=== PATIENT | female | born 1960 | race Caucasian/White ===

== ENCOUNTER → 2019-11-16 10:56 | Outpatient (CLI) | payer OTHER, SELFPAY ==
--- NOTE | ~2019-11-16 | XR_ITS ---
EXAMINATION: XR lumbar spine 2-3V DATE: 11/16/2019 11:56 INDICATION: Lumbar spinal stenosis. TECHNIQUE: 3 views of lumbar spine including flexion and extension views were obtained. COMPARISON: Lumbar spine MRI 09/26/2019 FINDINGS: There is 4 mm anterolisthesis of L4 on L5. With flexion, there is 3 mm anterolisthesis of L 3 on L4. Vertebral body heights are normal. Intervertebral disc heights are normal. There is multilev el facet joint osteoarthritis, severe bilaterally from L2-L3 through L4-L5. IMPRESSION: 1. Moderate lumbar spondylosis. Reviewed, dictated and finalized at location A. RD CHANGER
== END ==
PROVIDERS: PCP Family Medicine
DX: M48.061 Spinal stenosis, lumbar region without neurogenic claudication (principal); M47.896 Other spondylosis, lumbar region
CPT/HCPCS: 72100

== ENCOUNTER 2019-11-16 12:13 | Outpatient (CLI) | payer OTHER, SELFPAY ==
--- NOTE | 2019-11-16 | ECG_ITS ---
Measurements Intervals [place] Rate: 73 P: 6 MA: 162 QRS: 24 QRSD: 84 T: 29 QT: 385 QTc: 425 Interpretive Statements SINUS RHYTHM NORMAL ECG Electronically Signed On 11-16-2019 17:46:27 CAMPAIGN MANAGEMENT SPECIALIST by Aaron Parra D.O.
== END 2019-11-16 12:14 | disposition home or self-care (01) ==
LOC: ANHCARD 12:18
PROVIDERS: PCP Family Medicine
DX: M48.061 Spinal stenosis, lumbar region without neurogenic claudication (principal)
CPT/HCPCS: 93005

== ENCOUNTER 2020-02-19 17:33 | Outpatient (CLI) | payer OTHER, SELFPAY ==
--- NOTE | ~2020-02-19 | MR_ITS ---
EXAMINATION: MR lumbar spine wo/w con EXAM DATE: 02/19/2020 18:51 INDICATION: Low back surgery in December 2019. Right-sided lumbar pain. Low back pain. Right thigh pain. TECHNIQUE: Multi-sequential, multiplanar MR images of the lumbar spine were obtained without contrast . Sagittal T1, T2, T2 fat saturation images. Axial T2 weighted images. Axial T1 weighted sequence. Patient was then injected with 17 mL Multihance intravenous contrast and reimaged. Postcontrast axi al and sagittal T1-weighted fat saturation sequences were obtained. Comparison is made to prior exam ination from 09/26/2019. FINDINGS: Interval left hemilaminotomy at L3 and L4 levels. Enhancement at the resection beds of thes e. Some inflammation, enhancement of the medial aspect left posterior paraspinal musculature. No epid ural abscess or evidence of arachnoiditis. The conus medullaris terminates at the L1/2 level and has normal signal intensity and morphology. Th ere is 3 mm anterolisthesis L4 on L5. The vertebral bodies are otherwise aligned. There is mild lumba r disc disease but the heights are maintained. There are no suspicious marrow signal abnormalities. P araspinal soft tissue is unremarkable. Level by level evaluation: T12-L1: Disc does not extend beyond the endplate margin. Facet arthropathy: Mild. Neural foraminal stenosis: No stenosis. Central canal stenosis: No stenosis. L1-L2: There is a minimal diffuse disc bulge. Facet arthropathy: Mild. Neural foraminal stenosis: No stenosis. Central canal stenosis: No stenosis. L2-L3: There is a mild diffuse disc bulge. Facet arthropathy: Moderate. Neural foraminal stenosis: No stenosis. Central canal stenosis: Mild. L3-L4: There is a mild to moderate diffuse disc bulge. Facet arthropathy: Moderate to severe. Neural foraminal stenosis: Moderate left, mild to moderate right. Central canal stenosis: Mild. L4-L5: There is a mild to moderate diffuse disc bulge. Facet arthropathy: Severe. Neural foraminal stenosis: Moderate to severe left, mild to moderate right. Central canal stenosis: Moderate. L5-S1: There is a mild diffuse disc bulge. Facet arthropathy: Mild. Neural foraminal stenosis: No stenosis. Central canal stenosis: No stenosis. IMPRESSION: 1. Laminotomy bed L3 and L4 with expected postoperative enhancement. 2. Advanced mid lumbar facet arthropathy. Reviewed, dictated and finalized at location A.
[2020-02-19 18:40] LABS: Estimated Glomerular Filt Rate > 60
== END 2020-02-19 17:34 | disposition home or self-care (01) ==
PROVIDERS: PCP Family Medicine
DX: M43.16 Spondylolisthesis, lumbar region (principal); Z98.890 Other specified postprocedural states
CPT/HCPCS: 36415; 72158; A9577

== ENCOUNTER 2022-08-03 10:27 | Outpatient (CLI) | payer OTHER, SELFPAY ==
[2022-08-03 19:29] LABS: Kit Draw Collected
== END 2022-08-03 10:28 | disposition home or self-care (01) ==
LOC: ANHGOSHLAB 10:29
PROVIDERS: PCP Family Medicine; Visit Provider Family Medicine
DX: E04.9 Nontoxic goiter, unspecified (principal); R73.03 Prediabetes; Z11.59 Encounter for screening for other viral diseases
CPT/HCPCS: 36415

== ENCOUNTER → 2023-04-26 11:03 | Outpatient (CLI) | payer OTHER, SELFPAY ==
--- NOTE | ~2023-04-26 | DEXA_ITS ---
Bone Density Report Name: SANDRA DESHPANDE Age: 63 Sex: Female Ethnicity: White Date of : 1960 Indication: postmenopausal; screening for osteoporosis; Referring Provider: SHAYNE GUTIERREZ Study: Bone densitometry was performed. Exam Date: April 26, 2023 Accession number: [id number] Bone Density: Region BMD T-score Z-score Classification AP Spine (L1-L4) 1.124 0.7 2.4 Normal Femoral Neck (Left) 0.796 -0.5 1.0 Normal Total Hip (Left) 0.936 0.0 1.1 Normal Femoral Neck (Right) 0.785 -0.6 0.9 Normal Total Hip (Right) 0.975 0.3 1.4 Normal Total Hip Mean 0.956 0.2 1.3 Normal World Health Organization criteria for BMD impression classify patients as: Normal (T-score at or above -1.0), Osteopenia (T-score between -1.0 and -2.5), or Osteoporosis (T-score at or below -2.5). 10-year Fracture Risk: FRAX not reported because: All T-scores for Spine Total, Hip Total, Femoral Neck at or above -1.0 Clinical Information Provided by Patient: Patient maximum height was 66.5 Menopause Age: 49 No regular weight bearing exercise Drinks caffeinated beverages Onset of menses at age 13 Number of children 3 Impression: The patient has normal bone mass. Discussion: BONE DENSITY IS ABOVE THE MINIMUM DESIRABLE LEVEL AT ALL SKELETAL SITES TESTED. This patient?s bone mineral density is above the minimum desirable level (T-score -1.0 or better) at all sites measured. The patient should follow a healthful lifestyle (good nutrition with adequate calcium and vitamin D, and appropriate weight-bearing exercise). Follow-Up: Consider repeating this study in 5 years or sooner if there is some new clinical indication. Reported by: [facility] on 04/26/2023 11:25:00 AM. Reviewed, dictated and finalized at location A. [facility]
--- NOTE | ~2023-04-26 | MM_ITS ---
EXAMINATION: MM screening [facility] BI w donna HISTORY: Screening mammogram TECHNIQUE: Craniocaudal and mediolateral oblique 3-D tomosynthesis images were obtained and synthetic 2-D images were generated. CAD analysis was submitted and interpreted. COMPARISON: 02/05/2016, 01/12/2015, 12/06/2013 BREAST PARENCHYMAL COMPOSITION: The breasts are heterogeneously dense, which may obscure small masses . FINDINGS: No suspicious mass, calcification, or architectural distortion are identified in either [place] ast to suggest malignancy. There has been no suspicious interval change. IMPRESSION: 1. No mammographic evidence of malignancy. 2. Recommend routine screening mammography in one year. BI-RADS Category 1: Negative Reviewed, dictated and finalized at location A.
== END ==
PROVIDERS: PCP Family Medicine; Visit Provider Family Medicine
DX: Z12.31 Encounter for screening mammogram for malignant neoplasm of breast (principal); Z78.0 Asymptomatic menopausal state
CPT/HCPCS: 77063; 77067; 77080

== ENCOUNTER 2023-08-11 09:16 | Outpatient (CLI) | payer OTHER, SELFPAY ==
[2023-08-11 18:21] LABS: Alanine Aminotransferase 18 U/L (6-35); Albumin Level 4.2 g/dL (3.5-5.1); Alkaline Phosphatase 96 U/L (38-126); Anion Gap 8 mmol/L (8-16); Aspartate Amino Transferase 30 U/L (14-36); Bilirubin,Total 0.5 mg/dL (0.2-1.3); Blood Urea Nitrogen 15 mg/dL (7-17); Calcium 9.4 mg/dL (8.4-10.2); Carbon Dioxide 28 mmol/L (22-30); Chloride 105 mmol/L (98-107); Cholesterol 237 mg/dL (0-200); Estimated Glomerular Filt Rate > 60; Glucose 103 mg/dL (65-110); HDL Direct 37 mg/dL; Sodium 141 mmol/L (137-145); Triglycerides 242 mg/dL (<150)
[2023-08-11 18:32] LABS: LDL Cholesterol Direct 113 mg/dL
[2023-08-11 18:54] LABS: Hemoglobin A1C 5.3 % (<5.7)
== END 2023-08-11 09:17 | disposition home or self-care (01) ==
LOC: ANHGOSHLAB 09:18
PROVIDERS: PCP Family Medicine; Visit Provider Family Medicine
DX: E04.9 Nontoxic goiter, unspecified (principal); E78.2 Mixed hyperlipidemia
CPT/HCPCS: 36415; 80053; 80061; 83036; 84443

== ENCOUNTER 2024-01-10 14:02 | Outpatient (CLI) | payer OTHER, SELFPAY ==
--- NOTE | ~2024-01-10 | MR_ITS ---
EXAMINATION: MR lumbar spine wo con DATE: 01/10/2024 14:31 INDICATION: Spinal stenosis, lumbar region with neurogenic claudication. TECHNIQUE: Magnetic resonance imaging (MRI) of the lumbar spine was performed without intravenous con trast. Sequences included sagittal T2-weighted FSE, sagittal T2-weighted FS FSE, sagittal T1-weighted FSE, and axial T2-weighted FSE. COMPARISON: Lumbar spine MRI 02/19/2020 FINDINGS: There is 10 degrees dextroscoliosis of lumbar spine. There is 6 mm anterolisthesis of L4 on L5. Vertebral body heights are normal. There is severely decreased disc height at L2-L3, mildly decr eased disc height at L3-L4, and severely decreased disc height at L4-L5. The distal spinal cord signa l intensity is normal. The conus medullaris is at L1. The following disc levels are specifically disc ussed: L1-L2: There is a right foraminal extrusion. There is mild bilateral facet joint osteoarthritis. Ther e is mild right neural foraminal stenosis. There is no central canal stenosis. L2-L3: The disc is bulging and has an annular fissure. There is severe bilateral facet joint osteoart hritis. There is mild bilateral neural foraminal stenosis. There is mild central canal stenosis. L3-L4: The disc is bulging and has an annular fissure. There is severe bilateral facet joint osteoart hritis. There is mild bilateral neural foraminal stenosis. There is mild central canal stenosis. L4-L5: The disc is bulging and has an annular fissure. There is severe bilateral facet joint osteoart hritis. There is moderate bilateral neural foraminal stenosis. There is moderate central canal stenos is. L5-S1: The disc does not extend beyond the endplate margin. There is severe bilateral facet joint ost eoarthritis. There is no neural foraminal stenosis. There is no central canal stenosis. IMPRESSION: 1. Worsened severe lumbar spondylosis. 2. Lumbar dextroscoliosis. Reviewed, dictated and finalized at location E.
== END 2024-01-10 14:03 ==
LOC: MICIMG 14:04
PROVIDERS: PCP Chiropractor; Referring Provider Neurological Surgery; Visit Provider Family Medicine
DX: M48.062 Spinal stenosis, lumbar region with neurogenic claudication (principal); M47.896 Other spondylosis, lumbar region
CPT/HCPCS: 72148

== ENCOUNTER 2024-07-11 12:29 | Outpatient (CLI) | payer MEDICARE, OTHER, SELFPAY ==
--- NOTE | 2024-07-11 12:32 | ECG_ITS ---
Test Date: 2024-07-11 12:54:17 Measurements Intervals [place] Rate: 61 P: 5 NJ: 178 QRS: 5 QRSD: 84 T: 7 QT: 355 QTc: 358 Interpretive Statements SINUS RHYTHM WITH MARKED RHYTHM IRREGULARITY, POSSIBLE NON-CONDUCTED PAC, SA BLOCK, AV BLOCK, OR SINUS PAUSE LOW QRS VOLTAGE IN PRECORDIAL LEADS [QRS DEFLECTION < 1.0 mV IN CHEST LEADS] WARNING: DATA QUALITY MAY AFFECT INTERPRETATION No previous ECG available for comparison Electronically Signed On 07-11-2024 15:30:48 CDT by Maria Del Carmen Fairchild M.D.
[2024-07-11 13:24] LABS: Hematocrit 39.4 % (37.0-47.0); Mean Corpuscular Hemoglobin 30.4 pg (26-34); Mean Corpuscular Volume 92.1 fl (80-100); Mean Platelet Volume 10.6 fl (7.4-10.4); Platelet Count Result 224 k/mm3 (150-375); Red Blood Count 4.28 M/mm3 (4.2-5.4); Red Cell Distribution Width 11.8 % (11.5-14.5); White Blood Count 7.2 K/mm3 (4.5-10.0)
[2024-07-11 13:26] LABS: Add Urine Microscopic? NO; Appearance Urine Clear (Clear); Bilirubin Urine Negative (Negative); Blood Urine Negative (Negative); Color Urine Yellow (Yellow); Glucose Urine UA Negative (Negative); Ketones Urine Negative (Negative); Leukocyte Esterase Ur Negative LEU/UL (Negative); Nitrate Urine Negative (Negative); Protein Urine Negative (Negative); Specific Grav Ur 1.005 (1.001-1.035); Urobilinogen Urine 0.2 mg/dL (<2.0); pH Urine 7.5 (5.0-9.0)
[2024-07-11 13:34] LABS: Anion Gap 10 mmol/L (4-12); Blood Urea Nitrogen 13 mg/dL (7-17); Calcium 9.1 mg/dL (8.4-10.2); Carbon Dioxide 29 mmol/L (22-30); Chloride 96 mmol/L (98-107); Estimated Glomerular Filt Rate > 60; Glucose 93 mg/dL (65-110); Potassium 3.5 mmol/L (3.4-5.0); Sodium 135 mmol/L (137-145)
[2024-07-11 14:24] LABS: INR 0.9; Prothrombin Time 12.7 Seconds (11.1-14.7)
== END 2024-07-11 12:30 | disposition home or self-care (01) ==
PROVIDERS: PCP Family Medicine; Visit Provider Neurological Surgery
DX: Z01.818 Encounter for other preprocedural examination (principal); M43.16 Spondylolisthesis, lumbar region; I49.9 Cardiac arrhythmia, unspecified; I10 Essential (primary) hypertension; R94.31 Abnormal electrocardiogram [ECG] [EKG]
CPT/HCPCS: 36415; 80048; 81003; 85027; 85610; 85730; 86850; 86900; 86901; 93005

== ENCOUNTER 2024-07-16 13:43 | Inpatient (IN) | payer MEDICARE, OTHER, SELFPAY ==
--- NOTE | 2024-07-05 12:37 | PC.NURSE ---
Report to the Outpatient Waiting Room, entrance under the green pavilion located off [facility], at time _6AM on date _07/16/24 . Planned Procedure Time: _7:30 AM .? Time changes happen often and if your time is changed the preop area will call you the afternoon before. - You and your visitor will be asked to self-screen and do not enter if you have any COVID symptoms. Please call surgeon if you need to reschedule. - A mask is optional within the hospital at this time. Patients may have clear liquids (water, carbonated beverages, clear teas, apple juice) until 3 hours prior to surgery( 4:30 AM) with a maximum of 20 ounces. - No food from midnight until time of surgery and no smoking - Infants may have breast milk until 4 hours before surgery, infant formula 6 hours prior to surgery. - Children will be allowed to drink immediately following surgery.? If applicable, please bring a bottle or sippy cup to assist with drinking. Juice, water, soda, and popsicles are readily available.? For infants on formula, please bring formula the day of surgery.? Pacifiers are allowed. Take only the following medications with a SIP of water on the morning of surgery: ___NONE DO NOT STOP ANY OF YOUR OTHER PRESCRIPTION MEDICATIONS PRIOR TO SURGERY EXCEPT THE FOLLOWING Medications to discontinue per physician _ASPIRIN AND MELOXICAM PER DR ESCALONA. HOLD ALL VITAMINS AND SUPPLEMENTS 3 DAYS PRE O P.LAST DOSE 07/12/24 Please no make-up, nail danish, hairspray, perfume, deodorant, or body powder the day of surgery.? No jewelry (including any body piercings) or valuables the day of surgery, leave them at home.? Please take a shower or bath the night before, or the morning of, surgery with an antibacterial soap.? Wear comfortable, loose fitting clothing.? Children are encouraged to wear pajamas. - Jewelry must be removed prior to entering the operating room.? Rings and piercings that are not removed may be cut off. - The hospital will not accept responsibility for valuables.? - Please leave all valuables, including medications, at home the day of surgery. If you are going home after surgery, a licensed special client bus driver must drive you home.? - NO public transportation without another adult if you receive anesthesia. - We recommend that an adult stay with you for 24 hours following discharge. - We also recommend that you do not drive, make important decision, drink alcoholic beverages, or take any drugs that were not prescribed by your health care provider for at least 24 hours after your discharge time. For Pediatric surgeries, we recommend two adults accompany the child home. Follow any additional instructions given to you from your surgeon. Telephone instructions given to _PATIENT and asked if any additional questions and then verbalized understanding. Patient advised to call surgeon office or pre surgery nurse liaison [phone] if any additional questions.6
[2024-07-05 12:48] VITALS: BMI 32.9
[2024-07-16] VITALS (20 sets, daily range): BP systolic 123–157; BP diastolic 68–99; PULSE 86–107; RESP 11–18; TEMP 36.2–37.4; O2SAT 92–100
--- NOTE | ~2024-07-16 | XR_ITS ---
EXAMINATION: XR fluoroscopy no charge DATE: 07/16/2024 10:39 INDICATION: Lumbar spondylosis. TECHNIQUE: 2 intraoperative fluoroscopic views of the lumbar spine were obtained. I was not present. Fluoroscopy time was 9 seconds. COMPARISON: Lumbar spine MRI 01/10/2024 FINDINGS: There is 4 mm anterolisthesis of L4 on L5. There are changes of anterior and posterior fusi on procedures at L4-L5 with interbody devices and pedicle screws. IMPRESSION: 1. Anterior and posterior fusion procedures at L4-L5. Reviewed, dictated and finalized at location B.
[2024-07-16] MEDS: LACTATED RINGERS 1,000 ML 30 ML IV CONT ×2 (06:55→11:24)
--- NOTE | 2024-07-16 07:24 | WPDANESEPPF ---
Anes - Initial Pre Proc Eval Procedure: Operation Date: 07/16/24 07:30 Proposed Procedures p L4-5 Posterior Lumbar Interbody Fusion, L2-3 Left Nicolas Laminectomy - Mason Tucker MD Date/Time: 07/16/24 07:24 Surgeon: Mason Tucker MD Pre Op Diagnosis: L4-5 spondylolithisis, L2-3 stenosis Patient Data Age: 64 Gender: F Height: 1.7 m Weight: 94.8 kg Last Vital Signs Temp 36.8 C 07/16/24 06:25 Pulse 91 07/16/24 06:25 Resp 16 07/16/24 06:25 BP 148/83 H 07/16/24 06:25 Pulse Ox 98 07/16/24 06:25 O2 Del Method Room Air 07/16/24 06:25 Allergies Allergy/AdvReac Type Severity Reaction Status Date / Time levothyroxine sodium Allergy Unknown hot Verified 07/16/24 07:02 flashes, depression tetracycline Allergy Unknown facial Verified 07/16/24 07:02 swelling hydromorphone [From Dilaudid] Allergy Vomiting Verified 07/16/24 07:02 duloxetine AdvReac Severe flatness, Verified 07/16/24 07:02 apathy lisinopril AdvReac Severe Cough Verified 07/16/24 07:02 Home Medications Medication Instructions Recorded Confirmed Type atorvastatin 20 mg tablet 20 mg PO DAILY #90 tabs 11/07/23 07/16/24 Rx meloxicam 15 mg tablet See Rx Instructions .Route 11/07/23 07/16/24 Rx .COMPLEX #90 tabs hydrochlorothiazide 25 mg tablet 25 mg PO DAILY #90 tabs 12/12/23 07/16/24 Rx losartan 50 mg tablet 50 mg PO DAILY #90 tabs 12/12/23 07/16/24 Rx aspirin 81 mg tablet,delayed 81 mg PO DAILY 07/05/24 07/16/24 History release (Adult Low Dose Aspirin) coQ10 (ubiquinol) 100 mg capsule 100 mg PO DAILY 07/05/24 07/16/24 History garlic 300 mg capsule 300 mg PO DAILY 07/05/24 07/16/24 History glucosamine sulf dipot 1 cap PO DAILY 07/05/24 07/16/24 History chlr,msm,chond 550 mg-C 30 mg-yeimi 1 mg capsule (Glucosamine Chondroitin) magnesium 200 mg tablet 200 mg PO DAILY 07/05/24 07/16/24 History multivitamin (Daily Multi-Vitamin 1 tablet PO DAILY 07/05/24 07/16/24 History tablet) omega-3 fatty acids 1,000 mg PO DAILY 07/05/24 07/16/24 History turmeric 400 mg capsule 400 mg PO DAILY 07/05/24 07/16/24 History Patient hx anesthesia problems: none Family hx anesthesia problems: none Prior surgeries: tonsillectomy, cholecystectomy, prior spinal surgery Results Review: All pre-operative results and documents have been reviewed as part of the pre-operative evaluation. [facility] Past Medical History Medical History Normal colonoscopy 5.2.14 Surgical History Surgical History H/O tubal ligation (~1999) History of cholecystectomy (~2017) History of tonsillectomy (~1982) Previous back surgery Family History Family History Mother Hypertension Family history of heart disease in male family member before age 55 Family history of cardiovascular disease Grandparent Family history of malignant melanoma Family history of malignant neoplasm of cervix Sibling Family history of elevated blood lipids Other Family history of malignant neoplasm Social History Social History Smoking packs per day: 1 Smoking cigarettes per day: 20.0 Years smoked: 10 Smoking pack-years: 10.00 Smoking status: Former smoker Tobacco type: cigarettes Smoking end date: 09/18/91 Alcohol intake: never Substance use: never Substance use type: does not use Lack of Transportation: No Lack of Food: Never True Current Housing: I Have Housing Concerned About Future Housing: No Difficulty Paying Gas/Electric Bills: No Difficulty Paying for Meds: No Currently Unemployed: No Education: Bachelor's Degree Difficulty w/ Childcare or Family Care: No Living arrangements: with family Spiritual care concerns: No Anes - Eval Final PreProcedure Day of Procedure 07/16/24 07:24 Heart: regular rate and rhythm Airway: Mallampati scale class II Neurological: alert and oriented Last oral intake: >/= 8 hours ASA classification: II Emergent: no Anesthetic plan: proceed Anesthesia type and monitoring: general and standard monitoring Results Review: All pre-operative results and documents have been reviewed as part of the pre-operative evaluation. Informed Consent: The patient's anesthetic plan and its attendant risks and benefits were discussed with the patient/family/POA. Questions were solicited and answers provided to the satisfaction of the patient/family/POA.
--- NOTE | 2024-07-16 07:58 | P.HP_ITS ---
H&P: HPI History of Present Illness Date/Time: 07/16/24 07:58 Chief Complaint: Back and leg pain Narrative: Velvet is a 64-year-old female who is well known me for problems related to her back and who underwent a left-sided L4-5 hemilaminectomy. She has complaints of discomfort in a bandlike fashion in her low back radiating proximally into her lower extremities. Before her last surgery she had significant weakness in the left lower extremity distally. This resolved after the surgery but she was left with some numbness in the anterolateral lester. This persists. It is static. The pain in her back is fairly severe and is worse when she stands and walks. As mentioned it is bandlike in the low lumbar spine radiating into the buttocks. It is better if she is sitting or leaning forward. She does not report specific muscle group weakness or dermatomal numbness. She is not having any bowel or bladder difficulty. He has had significant management of this problem both surgically and non surgically but without permanent benefit. The pain is been going on for several years intermittently and is now more significant for the last year or so progressively. Review of Systems Review of Systems: All systems reviewed & are unremarkable except as noted in HPI and below Denies chills, Denies fever(s), Denies weakness, Denies weight gain and Denies weight loss Eyes Denies change in vision and Denies diplopia ENT Denies neck pain and Denies disequilibrium Card Denies chest pain and Denies dyspnea Resp Denies cough and Denies dyspnea GI Denies abdominal pain, Denies change in bowel habits, Denies fecal incontinence and Denies vomiting Denies hematuria, Denies oliguria, Denies difficulty urinating, Denies dysuria, Denies urinary frequency, Denies urinary hesitancy, Denies urinary incontinence and Denies urinary urgency Musc Reports as per HPI, Reports back pain, Denies muscle weakness, Denies neck pain, Reports numbness and Denies stiffness Skin/ Breast Reports system reviewed and no additional complaints, except as documented Neuro Reports as per HPI, Denies burning sensations, Denies focal weakness, Reports numbness, Denies Other visual disturbances, Reports radicular pain, Reports paresthesias, Denies disequilibrium and Denies weakness Psych Reports no additional complaints, Denies depression and Denies hopelessness Endo Reports no additional complaints and Denies polyuria Tomas/ Lymph Reports no additional complaints Aller/ Immun Reports no additional complaints PMFSH Past Medical History Medical History Normal colonoscopy 5.2.14 Surgical History Surgical History H/O tubal ligation (~1999) History of cholecystectomy (~2017) History of tonsillectomy (~1982) Previous back surgery Family History Family History Mother Hypertension Family history of heart disease in male family member before age 55 Family history of cardiovascular disease Grandparent Family history of malignant melanoma Family history of malignant neoplasm of cervix Sibling Family history of elevated blood lipids Other Family history of malignant neoplasm Social History Social History Smoking packs per day: 1 Smoking cigarettes per day: 20.0 Years smoked: 10 Smoking pack-years: 10.00 Smoking status: Former smoker Tobacco type: cigarettes Smoking end date: 09/18/91 Alcohol intake: never Substance use: never Substance use type: does not use Lack of Transportation: No Lack of Food: Never True Current Housing: I Have Housing Concerned About Future Housing: No Difficulty Paying Gas/Electric Bills: No Difficulty Paying for Meds: No Currently Unemployed: No Education: Bachelor's Degree Difficulty w/ Childcare or Family Care: No Living arrangements: with family Spiritual care concerns: No Meds Home Medications and Allergies Home Medications Medication Instructions Recorded Confirmed Type atorvastatin 20 mg tablet 20 mg PO DAILY #90 tabs 11/07/23 07/16/24 Rx meloxicam 15 mg tablet See Rx Instructions .Route 11/07/23 07/16/24 Rx .COMPLEX #90 tabs hydrochlorothiazide 25 mg tablet 25 mg PO DAILY #90 tabs 12/12/23 07/16/24 Rx losartan 50 mg tablet 50 mg PO DAILY #90 tabs 12/12/23 07/16/24 Rx aspirin 81 mg tablet,delayed 81 mg PO DAILY 07/05/24 07/16/24 History release (Adult Low Dose Aspirin) coQ10 (ubiquinol) 100 mg capsule 100 mg PO DAILY 07/05/24 07/16/24 History garlic 300 mg capsule 300 mg PO DAILY 07/05/24 07/16/24 History glucosamine sulf dipot 1 cap PO DAILY 07/05/24 07/16/24 History chlr,msm,chond 550 mg-C 30 mg-yeimi 1 mg capsule (Glucosamine Chondroitin) magnesium 200 mg tablet 200 mg PO DAILY 07/05/24 07/16/24 History multivitamin (Daily Multi-Vitamin 1 tablet PO DAILY 07/05/24 07/16/24 History tablet) omega-3 fatty acids 1,000 mg PO DAILY 07/05/24 07/16/24 History turmeric 400 mg capsule 400 mg PO DAILY 07/05/24 07/16/24 History Allergies Allergy/AdvReac Type Severity Reaction Status Date / Time levothyroxine sodium Allergy Unknown hot Verified 07/16/24 07:02 flashes, depression tetracycline Allergy Unknown facial Verified 07/16/24 07:02 swelling hydromorphone [From Dilaudid] Allergy Vomiting Verified 07/16/24 07:02 duloxetine AdvReac Severe flatness, Verified 07/16/24 07:02 apathy lisinopril AdvReac Severe Cough Verified 07/16/24 07:02 Vital Signs Vital Signs - 24 hr 07/16/24 06:25 Temperature 98.2 F Pulse Rate 91 Respiratory Rate 16 Blood Pressure 148/83 H Pulse Oximetry 98 Oxygen Delivery Room Air Exam Narrative: General: cooperative, no acute distress, well developed, alert and awake Orientation/Consciousness: oriented to person, oriented to place and oriented to time Constitutional Limitations: no limitations Other: The patient is a normally developed, normal appearing female sitting on the examination table in no acute distress. He is awake, alert, and oriented x3 with good fund of knowledge, recall of events, and fluent speech. [facility] Head: normocephalic and atraumatic Ears: external ears normal Face/Nose/Sinus: Normal external nose present Eyes Eyelids: eyelids normal Pupils: Yes Pupils normal by confrontation EOM: EOMs intact bilaterally Neck General: Yes no meningeal signs, Yes supple and Yes no JVD Resp Effort/Inspection: normal respiratory effort and able to speak in complete sentences Cardio Rate: Yes regular rate GI Inspection: No abdominal distension Musc Other: Examination of the back reveals no tenderness. Range of motion of the back is Limited in forward flexion and extension more than lateral rotation. Straight leg raise is negative bilaterally. Kali?s test is negative bilaterally. Skin General: normal color Neuro General: Yes oriented to person, Yes oriented to place, Yes oriented to time, Ye s normal cognition and Yes no meningeal signs Cranial Nerves: Yes CN's II-XII intact bilaterally Other: Motor: Strength is normal, 5/5, throughout all muscle groups of the bilateral lower extremities to direct confrontation. Sensory: Sensation is intact to light touch throughout the lower extremities bilaterally. Reflexes: deep tendon reflexes are difficult to elicit the knees or ankles bilaterally. There is no clonus. Gait: Gait, station, and transfers are independent and steady for short periods of time and over short distances. Psych Appearance: grossly normal Mental status: Yes mental status grossly normal Mood: congruent mood Affect: Yes normal affect Speech/Movement: Normal speech and movement present Attitude: Yes cooperative Thought Content: Normal thought content present Assessment and Plan Assessment and plan (1) Spondylolisthesis at L4-L5 level: Code(s): M43.16 - Spondylolisthesis, lumbar region Status: Acute (2) Spinal stenosis, lumbar region, with neurogenic claudication: Code(s): M48.062 - Spinal stenosis, lumbar region with neurogenic claudication Status: Acute Plan Velvet is a 64-year-old female with back and leg pain and claudication related to the spondylolisthesis at L4-5 and the stenosis at L2-3. She has undergone significant treatment including decompression at L4-5 in the past and persistent having recurrent problems. She has limited distracted daily by severe discomfort. I have therefore recommended to her that we deal with this surgically by way of L4-5 posterior lumbar interbody fusion after adequate decompression and L2-3 left-sided hemilaminectomy for central canal stenosis. I described to her that operation, its risks, potential benefits, the operative and postoperative course in detail and answered all her questions personally. We discussed risks including but not limited to permanent Um neurologic deficit secondary to nerve root injury, need for reoperation secondary to infection, bleeding, CSF leak, adjacent level disease, recurrent residual pathology, instability, malposition migration of the hardware or nonunion, failure of the procedure to relieve her pain or symptoms, persistent pain, medical complications related to anesthesia or surgery, etc.. We will also do an L2-3 hemilaminectomy for central canal stenosis which has similar risks. She indicates understanding and elects to proceed with that operation.
--- NOTE | 2024-07-16 08:00 | WPDHPUPDATE1 ---
History and Physical Update Update Date/Time: 07/16/24 08:00 History and Physical has been reviewed, including an updated exam of the patient. There are NO changes in the patient's condition. Risks, benefits, and alternatives have been discussed and questions answered. Patient agrees to proceed with procedure.
[2024-07-16] MEDS: ceFAZolin 2 GM/D5W 50 ML 2 GM/50 ML BAG IVPB (08:05)
[2024-07-16] MEDS: LIDO 1%/EPINEPHRINE 1:100,000 20 ML VIAL 10 ML INFILTRATE (08:27)
--- NOTE | 2024-07-16 11:24 | P.OP_ITS ---
Procedure Note - Detailed Date of Procedure 07/16/24 Pre-op Diagnosis L4-5 spondylolithisis, L2-3 stenosis Post-op Diagnosis Same Procedure Performed L4-5 complete laminectomy and bilateral facetectomy, L4-5 complete diskectomy and interbody arthrodesis utilizing titanium interbody devices and local autograft, L4-5 pedicle screw instrumentation, left L2-3 hemilaminectomy Surgeon Mason Tucker MD Anesthesia General Description of Procedure the patient was brought to the operating room in the supine position, was sedated, intubated placed under general anesthesia in routine fashion. She was then turned into the prone position on a Heron frame. The of operation her back was examined, marked for incision, prepped and draped in routine sterile fashion. Incision was marked over the L2-3 5 spinous processes in the midline. This area was injected with 0.5% lidocaine with 1 to [id number] epinephrine. Intravenous antibiotics given prior to incision. Incision was made with a 10 blade scalpel down to the lumbar dorsal fascia. A subperiosteal dissection of the muscle soft tissue away from spinous process and lamina at L2-5 was performed with a subperiosteal elevator and Bovie cautery. A verifying x-rays obtained to verify the level of operation. The L4 spinous process was removed with a horse the rongeur. Kerrison punches, curved curette and a Leksell rongeur were used to remove lamina the midline to the soft contents of the canal were encountered. A Midas Bobby drill was used to resect the pars bilaterally. Inferior to articular process and facet of L4 could then be removed bilaterally. These +spinous processes were strictly of soft tissue and more slice for later use interbody autograft. Kerrison punches and curved curettes were used to define a plane with the dura and removed bone ligament flush with the pedicle through the foramina widely decompressing exiting nerve roots. With the thecal sac retracted and protected the disc space was entered bilaterally using 11 blade scalpel. Scrape is a very sizes, curettes a very configurations, pituitary rongeur and a raspy used to remove as much cartilaginous endplate and disc material as possible down to bleeding cortical flat surfaces on the opposing bones. The disc spaces were sized and appropriately sized interbody devices were chosen and filled with local autograft bone. The disc space was likewise filled with local autograft bone medially and anteriorly. The interbody devices were then placed to 2-3 mm counter sink within the disc space bilaterally. Pedicle screw instrumentation was performed at L4-L5 by observing and palpating the pedicle while a hole was made superior to the process above the pedicle u sing Midas-Bobby drill. The pedicle was then cannulated with a pedicle probe, check for continuity with ball probe, tap 5/5 mm tap and a 6.5 x 50 mm screw was placed each pedicle. Armando placed in the screw heads on either side and secured position using the caps that purpose. A verifying x-rays obtained to verify good position of the instrumentation which was confirmed. At L2-3 on the left Midas-Bobby drill was used to perform a hemilaminectomy and medial facetectomy. Yellow ligament was lifted removed piecemeal using Kerrison punches. In the lateral epidural space in the curved curette was used to define a plane with the dura. Bone ligament was removed in the lateral epidural space for sips laterally and then contralaterally. This was done until a dental instrument could be placed in the lateral epidural space to confirm lack of compression. The wound was copiously irrigated with bacitracin irrigation all bleeding stopped with bipolar Bovie cautery and Gelfoam thrombin powder. A medium him a back pain was left in the sub fascial position buried out to the inferior and right of the incision. The wound was then closed in layered fashion with 2 0 Vicryl interrupted sutures in the lumbar dorsal fascia and scarf is layer. Three 0 Vicryl buried interrupted sutures were placed in the dermis and the skin was closed with a running 4 0 Monocryl subcuticular stitch and dressed with Dermabond. The patient was allowed to wake up in the operating room and was taken to the recovery room in stable condition. There were no immediate complications of this operation. All counts were reported correct given case. Blood loss was 300 cc. The patient was neurologically at her baseline postoperatively. CPT codes: 66994, 24127, 71616, 45658, 37559, 03772 Implants titanium pedicle screws and rods Estimated Blood Loss 300 Drains Yes Complications None Condition Stable Disposition PACU [facility] Billing Surgery - Charge Forward: Surgery Billing
[2024-07-16] MEDS: fentaNYL CITRATE INJ (*CRX) 100 MCG/2 ML VIAL 25 MCG IV PUSH ×8 (11:38→12:02)
--- NOTE | 2024-07-16 12:05 | WPDHPUPDATE1 ---
History and Physical Update Update Date/Time: 07/16/24 12:05 History and Physical has been reviewed, including an updated exam of the patient. There are NO changes in the patient's condition. Risks, benefits, and alternatives have been discussed and questions answered. Patient agrees to proceed with procedure. I'm lifting out the dorothy and putting in a longer 1 from L1 down to L4.
[2024-07-16] MEDS: MORPHINE SULFATE (*CRX) 2 MG/ML INJ IV PUSH ×5 (12:11→13:03)
[2024-07-16] MEDS: ONDANSETRON INJ 4 MG/2 ML VIAL IV PUSH (12:29)
[2024-07-16] MEDS: diphenhydrAMINE HCl INJ 50 MG/ML VIAL 25 MG IV PUSH (13:12)
--- NOTE | 2024-07-16 14:38 | PC.NURSE ---
This patient, Velvet Martin, was admitted to [facility] Surg Room 323-01. Patient/family oriented to hospital policies and general routines including ID bracelet, bed and alarms, visiting hours, pain management, procedures, bathroom and other care routines, personal items, smoking policy, room service/diet, and visiting hours. Information on how to activate the Rapid Response Team has been discussed. Patient/Family are encouraged to report perceived risks to care and to ask questions if they do not understand what they are told or what they should do.
[2024-07-16] MEDS: KCL 20 MEQ/D5/0.45% SOD CHL 1,000 ML 100 ML IV CONT (15:02)
[2024-07-16] MEDS: ceFAZolin 1 GM/NS 50 ML 1 GM/50 ML BAG IVPB ×2 (15:02→23:00)
[2024-07-16] MEDS: DOCUSATE SODIUM 100 MG CAPSULE PO (20:56)
[2024-07-16] MEDS: HYDROcodone/acetaminophen (*CRX) 5-325 MG TABLET 1 TAB PO (22:59)
[2024-07-17 00:33] VITALS: BP 122/62; PULSE 95; RESP 17; TEMP 36.6; O2SAT 100
[2024-07-17] MEDS: KCL 20 MEQ/D5/0.45% SOD CHL 1,000 ML 40 ML IV CONT (02:15)
[2024-07-17 04:08] VITALS: BP 121/53; PULSE 101; RESP 17; TEMP 37.1; O2SAT 94
[2024-07-17] MEDS: HYDROcodone/acetaminophen (*CRX) 5-325 MG TABLET 1 TAB PO ×2 (04:17→10:54)
[2024-07-17] MEDS: ceFAZolin 1 GM/NS 50 ML 1 GM/50 ML BAG IVPB ×2 (08:20→15:12)
[2024-07-17] MEDS: MAGNESIUM OXIDE 200 MG TABLET PO (08:21)
[2024-07-17] MEDS: DOCUSATE SODIUM 100 MG CAPSULE PO (08:21)
[2024-07-17] MEDS: MULTIVITAMINS THERAPEUTIC TAB (*BKC) 1 TABLET PO (08:21)
[2024-07-17] MEDS: LOSARTAN POTASSIUM 50 MG TABLET PO (08:21)
[2024-07-17] MEDS: hydroCHLOROthiazide 25 MG TABLET PO (08:21)
[2024-07-17] MEDS: OMEGA 3 POLYUNSAT FATTY ACIDS 1 GM CAP PO (08:21)
[2024-07-17] MEDS: ATORVASTATIN 20 MG TABLET PO (08:21)
[2024-07-17 08:32] VITALS: BP 130/71; PULSE 82; RESP 18; TEMP 36.6; O2SAT 97
[2024-07-17] MEDS: CYCLOBENZAPRINE HCL 10 MG TABLET PO (10:54)
[2024-07-17 12:43] VITALS: BP 128/60; PULSE 93; RESP 18; TEMP 36; O2SAT 100
--- NOTE | 2024-07-17 14:26 | WPDANESPN ---
Anes - Prog Note Post-Op Date/Time: 07/17/24 14:26 Cardiovascular status: normal Respiratory status: normal Airway patency: baseline Mental status: baseline Post-Op hydration status: normal Vital Signs: Last Vital Signs Temp 96.8 F L 07/17/24 12:43 Pulse 93 07/17/24 12:43 Resp 18 07/17/24 12:43 BP 128/60 07/17/24 12:43 Pulse Ox 100 07/17/24 12:43 O2 Del Method Room Air 07/17/24 09:29 O2 Flow Rate 6 07/16/24 12:05 Pain Score (VAS): 0/10 I/O: Intake & Output 07/16/24 07/17/24 07/17/24 23:59 07:59 15:59 Intake Total 50 1350 530 Output Total 110 2280 Balance -60 -930 530 Post-procedural complaints: none Patient Feedback: Patient satisfied with anesthetic care.
--- NOTE | 2024-07-17 15:05 | P.PNNEUSUR_ITS ---
Progress Note: A&P Assessment and Plan (1) Status post lumbar spinal arthrodesis: Code(s): Z98.1 - Arthrodesis status Status: Acute Plan -Remove drain -Discharge home today -Follow up with Dr. Tucker in clinic in 6 weeks Subjective Date/time seen: 07/17/24 15:05 Interval history: Doing well with controlled incisional pain. The numbness in her left thigh is gone. She has numbness in the right thigh which seems improved today. Ambulated in halls. Would like to go home today Review of Systems Review of Systems: All systems reviewed & are unremarkable except as noted in HPI and below Exam Narrative: AOx4 Full strength in lower extremities Sensation intact to light touch Incision c/d/i Objective Data Vital Signs Vital Signs: Vital Signs - 24 hr 07/16/24 15:13 07/16/24 15:43 07/16/24 16:43 Temperature 99.2 F 99.2 F 99.4 F Pulse Rate 99 95 107 H Respiratory Rate 18 18 16 Blood Pressure 133/74 129/99 H 123/77 Pulse Oximetry 95 92 94 Oxygen Delivery 07/16/24 20:40 07/17/24 00:33 07/17/24 04:08 Temperature 98.1 F 97.8 F 98.8 F Pulse Rate 103 H 95 101 H Respiratory Rate 18 17 17 Blood Pressure 140/68 122/62 121/53 L Pulse Oximetry 98 100 94 Oxygen Delivery 07/17/24 08:32 07/17/24 09:29 07/17/24 08:12 Temperature 97.8 F Pulse Rate 82 Respiratory Rate 18 Blood Pressure 130/71 Pulse Oximetry 97 Oxygen Delivery Room Air Room Air 07/17/24 12:43 Temperature 96.8 F L Pulse Rate 93 Respiratory Rate 18 Blood Pressure 128/60 Pulse Oximetry 100 Oxygen Delivery Intake/Output Intake/Output: Intake & Output 07/14/24 07/15/24 07/16/24 07/17/24 23:59 23:59 23:59 23:59 Intake Total 650 1880 Output Total 270 2280 Balance 380 -400 Meds/Results Medications: Active Medications Generic Name Dose Route Start Last Admin Trade Name Freq PRN Reason Stop Dose Admin Hydrocodone Bitart/Acetaminophen 1 tab 07/16/24 13:43 07/17/24 10:54 Hydrocodone/Acetaminophen (*Crx) 5-325 Mg Tablet PO 1 tab Q4H PRN Administration Mild Pain (1-3) Al Hydrox/Mg Hydrox/Simethicone 20 ml 07/16/24 13:43 Mag Hydrox/Al Hydrox/Simeth 30 Ml Udc PO Q4H PRN Indigestion/Heartburn Atorvastatin Calcium 20 mg 07/17/24 09:00 07/17/24 08:21 Atorvastatin 20 Mg Tablet PO 20 mg DAILY LAITH Administration Bisacodyl 10 mg 07/16/24 13:43 Bisacodyl 10 Mg Suppository RECTAL DAILY PRN Constipation Cyclobenzaprine HCl 10 mg 07/16/24 13:43 07/17/24 10:54 Cyclobenzaprine Hcl 10 Mg Tablet PO 10 mg TID PRN Administration Muscle Spasms Docusate Sodium 100 mg 07/16/24 21:00 07/17/24 08:21 Docusate Sodium 100 Mg Capsule PO 100 mg Q12HR LAITH Administration Fish Oil 1 gm 07/17/24 09:00 07/17/24 08:21 [place] 3 Polyunsat Fatty Acids 1 Gm Cap PO 1 gm QAM LAITH Administration Hydrochlorothiazide 25 mg 07/17/24 09:00 07/17/24 08:21 Hydrochlorothiazide 25 Mg Tablet PO 25 mg DAILY LAITH Administration Cefazolin Sodium 1 gm in 50 mls @ 100 mls/hr 07/16/24 16:00 07/17/24 08:50 Ancef 1 Gm/Ns 50 Ml IVPB Infused Q8H LAITH Infusion Potassium Chloride/Dextrose/Sod Cl 1,000 mls @ 100 mls/hr 07/16/24 13:43 07/17/24 02:15 Kcl 20 Meq/D5/0.45% Sod Chl IV CONT 40 mls/hr .Q10H LAITH Administration Losartan Potassium 50 mg 07/17/24 09:00 07/17/24 08:21 Losartan Potassium 50 Mg Tablet PO 50 mg DAILY LAITH Administration Magnesium Oxide 200 mg 07/17/24 09:00 07/17/24 08:21 Magnesium Oxide 200 Mg Tablet PO 200 mg DAILY LAITH Administration Multivitamins Therapeutic 1 tablet 07/17/24 09:00 07/17/24 08:21 Multivitamins Therapeutic Tab (*Bkc) PO 1 tablet DAILY LAITH Administration Ondansetron HCl 4 mg 07/16/24 13:43 Ondansetron Inj 4 Mg/2 Ml Vial IV PUSH Q8H PRN Nausea And Vomiting Senna/Docusate Sodium 1 tab 07/16/24 13:43 Senna/Docusate Sodium Tablet PO HS PRN Constipation Radiology Results: ITS Impressions Fluoroscopy 07/16/24 10:50 IMPRESSION: 1. Anterior and posterior fusion procedures at L4-L5.
--- NOTE | 2024-07-18 16:34 | PM.DS ---
DS: Admitting Diagnosis Discharge Date 07/17/24 Admitting Diagnosis Lumbar spondylolisthesis lumbar stenosis with neurogenic claudication DS: Discharge Diagnosis Discharge Diagnosis (1) Status post lumbar spinal arthrodesis: Code(s): Z98.1 - Arthrodesis status Status: Acute DS: Summary Hospital Course Hospital Course: Ms. Martin is a 64-year-old female who presented for surgery on July 16; please see the operative note for more details. She was transferred to the floor after surgery. She worked with physical therapy who cleared her for discharge home. She reported doing well on postoperative day 1 wished to go home. She was neurologically intact. We removed her Hemovac drain on postoperative day 1. She was discharged home the same day. Time Spent with Patient Time attestation: Total time spent providing and/or coordinating discharge services: Discharge Plan Discharge Consulting providers: Alin Copeland Jr.; Keenan Forrester V.; Luann Manuel Discharging Clinician: Di Fournier Patient Disposition: Home, Self-Care Activity: as tolerated Diet: as tolerated Patient Instructions: Antibiotic Form Stand Alone Forms: General Discharge Information Follow-up/Referrals: Mason Tucker MD [Physician] - Discharge Medications: New cyclobenzaprine 10 mg Tablet 10 mg PO TID PRN (Reason: Muscle Spasms) 10 Days Qty: 30 0RF hydrocodone-acetaminophen 5-325 mg Tablet 1 tablet PO Q4H PRN (Reason: pain) 7 Days Qty: 42 0RF Continued losartan 50 mg tablet 50 mg PO DAILY Qty: 90 3RF hydrochlorothiazide 25 mg tablet 25 mg PO DAILY Qty: 90 3RF multivitamin [Daily Multi-Vitamin] Tablet 1 tablet PO DAILY omega-3 fatty acids Capsule 1,000 mg PO DAILY magnesium 200 mg Tablet 200 mg PO DAILY Glucosamine Chondroitin 550-30-1 mg Capsule 1 cap PO DAILY garlic 300 mg Capsule 300 mg PO DAILY coQ10 (ubiquinol) 100 mg Capsule 100 mg PO DAILY turmeric 400 mg Capsule 400 mg PO DAILY atorvastatin 20 mg tablet 20 mg PO DAILY Qty: 90 3RF Held aspirin [Adult Low Dose Aspirin] 81 mg Tablet,Delayed Release (Dr/Ec) 81 mg PO DAILY Hold Instructions: Resume on 07/23/24. No Action meloxicam 15 mg tablet See Rx Instructions .ROUTE .COMPLEX Qty: 90 3RF Dose Instruction: TAKE 1 TABLET DAILY Rx Instructions: TAKE 1 TABLET DAILY. Date of admission: 07/16/24 13:43 Primary Care Provider: Minal Llanes Admitting Provider: Mason Tucker Attending physician on admission: Di Fournier Condition: Stable
== END 2024-07-17 16:05 | disposition home or self-care (01) | DRG 451 ==
LOC: ANH3MEDSUR 14:02
PROVIDERS: Admitting Provider Neurological Surgery; PCP Family Medicine; Visit Provider Neurological Surgery
PROC: 0SG00AJ Fusion of Lumbar Vertebral Joint with Interbody Fusion Device, Posterior Approach, Anterior Column, Open Approach (ICD-10-PCS; CPT 22612; principal; 2024-07-16 07:30)
DX: M48.062 Spinal stenosis, lumbar region with neurogenic claudication (principal); M43.16 Spondylolisthesis, lumbar region; Z87.891 Personal history of nicotine dependence; Z90.49 Acquired absence of other specified parts of digestive tract
CPT/HCPCS: 97161; 97165; 97530; 97535; 99199; A9270; C1713; J0690; J1100; J1171; J1200; J2003; J2004; J2250; J2270; J2405; J2704; J3010; J3480; J7120

== ENCOUNTER 2024-08-30 14:45 | Outpatient (CLI) | payer MEDICARE, OTHER, SELFPAY ==
--- NOTE | ~2024-08-30 | XR_ITS ---
EXAMINATION: XR lumbar spine 2-3V DATE: 08/30/2024 15:04 INDICATION: Arthrodesis status. TECHNIQUE: 3 views of lumbar spine were obtained. COMPARISON: Lumbar spine radiographs 11/16/19, lumbar spine MRI 01/10/2024 FINDINGS: There is 11 degrees dextroscoliosis of lumbar spine. There is 3 mm anterolisthesis of L4 on L5. There are changes of anterior posterior fusion procedures at L4-L5 with interbody devices and pe dicle screws. Vertebral body heights are normal. There is severely decreased disc height at L2-L3 and moderately decreased disc height at L3-L4. Surgical clips in the right upper quadrant are likely fro m cholecystectomy. IMPRESSION: 1. Anterior and posterior fusion procedures at L4-L5. 2. Severe lumbar spondylosis. 3. Lumbar dextroscoliosis. Reviewed, dictated and finalized at location A. S ESTIMATOR
== END 2024-08-30 14:46 | disposition home or self-care (01) ==
PROVIDERS: PCP Family Medicine; Visit Provider Neurological Surgery
DX: M47.896 Other spondylosis, lumbar region (principal); Z98.1 Arthrodesis status
CPT/HCPCS: 72100

== ENCOUNTER 2024-10-29 08:43 | Outpatient (CLI) | payer MEDICARE, OTHER, SELFPAY ==
--- NOTE | ~2024-10-29 | XR_ITS ---
EXAMINATION: XR wrist LT min 3V DATE: 10/29/2024 08:56 INDICATION: Left hand pain TECHNIQUE: Posteroanterior, ulnar deviation, oblique, and lateral views of the left wrist were obtain ed. COMPARISON: none FINDINGS: 2 mm ulnar positive variance. Bone alignment is otherwise normal. Polyarticular osteoarthritis, moder ate severity at the bases with residual, triscaphe and first and fifth carpal metacarpal joints and m ild at the majority the remaining visualized joints in the left hand and wrist. Soft tissues are unre markable. IMPRESSION: 1. Polyarticular osteoarthritis and mild at the left wrist and moderate at the carpus. No acute osseo us abnormality. Reviewed, dictated and finalized at location A. ICAL MAKER IMPRESSION: 1. Polyarticular osteoarthritis and mild at the left wrist and moderate at the carpus. No acute osseous abnormality.
== END 2024-10-29 08:44 | disposition home or self-care (01) ==
PROVIDERS: PCP Family Medicine; Visit Provider Student in an Organized Health Care Education/Training Program
DX: M19.032 Primary osteoarthritis, left wrist (principal); M19.042 Primary osteoarthritis, left hand
CPT/HCPCS: 73110

== ENCOUNTER 2024-11-25 14:25 | Outpatient (CLI) | payer MEDICARE, OTHER, SELFPAY ==
--- NOTE | ~2024-11-25 | XR_ITS ---
Lumbosacral Spine: AP and lateral views Clinical History: Status post fusion COMPARISON: 08/30/2024 Findings: Stable posterior and interbody fusion from L4 to L5. Stable anterolisthesis of L4 over L5. Additional facet joint degenerative changes in the upper lumbar spine are stable from prior exam. The sacroiliac joints are normally outlined. Impression: Stable posterior and interbody fusion from L4 to L5, with associated anterolisthesis of L4 over L5. Reviewed, dictated and finalized at location M. Impression: Stable posterior and interbody fusion from L4 to L5, with associated anterolist hesis of L4 over L5.
== END 2024-11-25 14:26 | disposition home or self-care (01) ==
PROVIDERS: PCP Family Medicine; Visit Provider Neurological Surgery
DX: Z98.1 Arthrodesis status (principal)
CPT/HCPCS: 72100

== ENCOUNTER 2024-12-14 09:57 | Outpatient (CLI) | payer MEDICARE, OTHER, SELFPAY ==
--- NOTE | ~2024-12-14 | MR_ITS ---
EXAMINATION: MR wrist LT wo con DATE: 12/14/2024 10:49 INDICATION: Extensor pollicis longus rupture. TECHNIQUE: Magnetic resonance imaging (MRI) of the wrist was performed without intravenous contrast. Sequences performed include coronal T1-weighted FSE, coronal PD-weighted FS FSE, axial PD-weighted FS FSE, axial PD-weighted FSE, sagittal PD-weighted FSE, and sagittal PD-weighted FS FSE. COMPARISON: Left wrist radiograph 10/29/2024 FINDINGS: Intrinsic ligaments: There is a full-thickness tear of the proximal (membranous) component of scapholunate ligament. Lunot riquetral ligament is intact. Triangular fibrocartilage complex (TFCC): There is a full-thickness perforation of the triangular fibrocartilage. Extensor wrist: There is moderate extensor carpi ulnaris tendinopathy. There is a full-thickness tear of extensor lissa licis longus tendon with long tendon gap. The proximal end of the tendon is partially visualized at t he most proximal axial image. There are partial tears of extensor pollicis brevis and abductor pollic is longus tendons. Flexor wrist: The flexor tendons are normal. Median nerve is normal. Guyon's canal: Ulnar nerve is normal. Bones/other: There is moderate osteoarthritis of triscaphe joint and first carpometacarpal joint. There is mild os teoarthritis of third carpometacarpal joint. IMPRESSION: 1. Complete tear of extensor pollicis longus tendon. 2. Partial tears of extensor pollicis brevis and abductor pollicis longus tendons. 3. Polyarticular osteoarthritis. Reviewed, dictated and finalized at location A. IMPRESSION: 1. Complete tear of extensor pollicis longus tendon. 2. Partial tears of extensor pollicis brevis and abductor pollicis longus tendo ns. 3. Polyarticular osteoarthritis.
== END 2024-12-14 09:58 | disposition home or self-care (01) ==
LOC: MICIMG 09:57
PROVIDERS: PCP Family Medicine; Visit Provider Plastic Surgery
DX: S66.212A Strain of extensor muscle, fascia and tendon of left thumb at wrist and hand level, initial encounter (principal); G56.03 Carpal tunnel syndrome, bilateral upper limbs; X58.XXXA Exposure to other specified factors, initial encounter; M19.032 Primary osteoarthritis, left wrist
CPT/HCPCS: 73221

== ENCOUNTER 2024-12-20 15:09 | Outpatient (CLI) | payer MEDICARE, OTHER, SELFPAY ==
--- NOTE | ~2024-12-20 | XR_ITS ---
HISTORY: G56.03 - Carpal tunnel syndrome, COMPARISON: None TECHNIQUE: 3 views of the right hand were performed. FINDINGS: No acute fracture is identified. The joint spaces are preserved. The carpal arcs are intact. Mild radiocarpal joint space narrowing with sclerosis of the distal radius is present. A 4.7 mm oval-shaped lucency with a central nidus of sclerosis is identified along the radial margin of the distal portion of the proximal phalanx of the third digit for which an osteoid osteoma is susp ected and clinical correlation is needed. Bone mineralization is otherwise unremarkable. No significant soft tissue swelling. No radiopaque foreign body is identified. IMPRESSION: Trace degenerative disease, without acute fracture or dislocation within the right hand, as detailed above. Findings within the radial margin of the distal portion of the proximal phalanx third digit for which an osteoid osteoma is suspected and clinical correlation is needed Reviewed, dictated and finalized at location A. IMPRESSION: Trace degenerative disease, without acute fracture or dislocation within the ri ght hand, as detailed above. Findings within the radial margin of the distal portion of the proximal phalanx third digit for which an osteoid osteoma is suspected and clinical correlation is needed
== END 2024-12-20 15:10 | disposition home or self-care (01) ==
PROVIDERS: PCP Family Medicine; Visit Provider Plastic Surgery
DX: G56.03 Carpal tunnel syndrome, bilateral upper limbs (principal)
CPT/HCPCS: 73130

== ENCOUNTER 2025-01-22 10:37 | Outpatient (CLI) | payer MEDICARE, OTHER, SELFPAY ==
--- OUTSIDE RECORDS SUMMARY | 2025-01-22 11:26 | XMS_ITS | Clinical Summary ---
Author Organization [facility] Address [address] [place] [address] Care Team Providers Care Carbide Die Maker Name Role Phone Prosper Llanes MD Primary Care Provider [phone] [phone] Allergies Active Allergy Reactions Criticality Noted Date Comments Tetracyclines Medications lisinopriL (PRINIVIL,ZESTRI L) 40 mg tablet Take 40 mg by mouth daily Active hydroCHLOROthiaz dina (HYDRODIURIL) 25 mg tablet Take 25 mg by mouth daily Active meloxicam (MOBIC) 15 mg tablet Take 15 mg by mouth daily Active Active Problems Problem Noted Date Diagnosed Date Lumbago 06/26/2014 Immunizations Immunization Administration Dates Next Due Influenza, Quadrivalent, Rec ombinant, Egg Free, Preservative Free, Intramuscular 06/05/2019 Surgical History Surgery Date Site/Laterality Comments NECK SURGERY Neck Surgery - (Added by TW Conv) [place] TONSILLECTOMY PRIMARY/SEC ONDARY <AGE 11 Tonsillectomy - (Added by TW Conv) Medical History Medical History Date Comments Personal history of other di seases of the circulatory system History of hypertension - (A dded by TW Conv) Spinal stenosis in cervical region Hypertension Lumbar stenosis Family History Medical History Relation Name Comments Hypertension Other 1 Family history of hypertension - (Added by TW Conv) Heart disease Other 2 Family history of cardiac disorder - (Added by TW Conv) Cancer Other 3 Family history of cancer - (Added by TW Conv) Relation Name Status Comments Other 1 Other 2 Other 3 Social History Tobacco Use Types Packs/Day Years Used Date Smoking Tobacco: Former Cigarettes 1 976 - 1991 Smokeless Tobacco: Never Tobacco Cessation:Counseling Given: Yes Alcohol Use Standard Drinks/Week Comments Never 0 (1 standard drink = 0.6 oz pur e alcohol) AUDIT-C Answer Date Recorded Q1: How often do you have a drink containing alc ohol? 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 Gender Identity Female 01/19/2024 8:14 PM CDT Sexual Orientation Not on file Obstetrics History Last Filed Vital Signs Vital Sign Reading Time Taken Comments Blood Pressure 130/83 04/13/2020 1:52 PM CDT Pulse 86 04/13/2020 1:52 PM CDT Temperature - - Respiratory Rate - - Oxygen Saturation - - Inhaled Oxygen Concentration - - Weight 89.8 kg (198 lb) 04/13/2020 1:52 PM CDT Height 170.2 cm (5' 7 ) 04/13/2020 1:52 PM CDT Body Mass Index 31.01 04/13/2020 1:52 PM CDT Plan of Treatment Health Maintenance Due Date Last Done Comments Breast Cancer Screening-Mammogram 1959 Cervical Cancer Screening 1959 Colon Cancer Screening-Colonoscopy 1959 Depression Screening 1959 Fall Risk Assessment 1959 Hepatitis C Screening 1959 Osteoporosis Screening-Bone Density Scan 1959 DTaP/Tdap/Td Vaccine (1 - Tdap) 1970 Hepatitis B Screening 1977 Pneumococcal vaccine 65+ (1 of 1 - PCV) 2009 Zoster Vaccine (1 of 2) 2009 Well Visit 65+ 2024 Influenza Vaccine (Season Ended) 2025 06/05/20 19 Insurance MEDICARE [facility] Care Teams Carbide Die Maker Relationship Specialty Start Date End Date Prosper Llanes MD PCP - General Family Medicine 10/10/19
--- OUTSIDE RECORDS SUMMARY | 2025-01-22 11:26 | XMS_ITS | Referral Summary ---
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
--- NOTE | 2025-01-22 11:30 | NEURO_ITS ---
Impression: # Complains of pain and numbness of hands. Non-diabetic. ? # Evolving bilateral Carpal Tunnel Syndrome. # Right ulnar neuropathy across the elbow.. ? # Normal needle/EMG exam. Nerve Conduction Studies Anti Sensory Summary Table ?Stim Site NR Peak (ms) P-T Amp (?V) Site1 Site2 Delta-P (ms) Dist (cm) Ranjit (m/s) Left Median Anti Sensory (2-3nd Digit) Wrist ? 3.9 21.7 Wrist 2-3nd Digit 3.9 14.0 36 Wrist ? 4.1 17.8 Wrist 2-3nd Digit 3.9 14.0 36 Right Median Anti Sensory (2-3nd Digit) Wrist ? 3.9 23.0 Wrist 2-3nd Digit 3.9 14.0 36 Wrist ? 3.8 37.3 Wrist 2-3nd Digit 3.9 14.0 36 Left Radial Anti Sensory (Base 1st Digit) Wrist ? 1.9 39.2 Wrist Base 1st Digit 1.9 0.0 Right Radial Anti Sensory (Base 1st Digit) Wrist ? 2.6 20.0 Wrist Base 1st Digit 2.6 0.0 Left Ulnar Anti Sensory (5th Digit) Wrist ? 2.7 28.0 Wrist 5th Digit 2.7 14.0 52 Right Ulnar Anti Sensory (5th Digit) Wrist ? 2.8 23.4 Wrist 5th Digit 2.8 14.0 50 Motor Summary Table ?Stim Site NR Onset (ms) O-P Amp (mV) Site1 Site2 Delta-0 (ms) Dist (cm) Ranjit (m/s) Left Median Motor (Abd Poll Brev) Wrist ? 4.1 2.4 Elbow Wrist 4.9 29.0 59 Elbow ? 9.0 4.4 Right Median Motor (Abd Poll Brev) Wrist ? 3.4 2.6 Elbow Wrist 5.3 30.0 57 Elbow ? 8.7 8.3 Left Ulnar Motor (Abd Dig Minimi) Wrist ? 2.7 8.0 A Elbow Wrist 5.1 32.0 63 A Elbow ? 7.8 5.9 Right Ulnar Motor (Abd Dig Minimi) Wrist ? 2.3 7.5 A Elbow Wrist 6.5 29.0 45 A Elbow ? 8.8 5.3 B Elbow Wrist 5.3 22.0 42 B Elbow ? 7.6 3.9 F Wave Studies ?NR F-Lat (ms) L-R F-Lat (ms) Left Median (Mrkrs) (Abd Poll Brev) ? 29.48 1.15 Right Median (Mrkrs) (Abd Poll Brev) ? 30.63 1.15 Left Ulnar (Mrkrs) (Abd Dig Min) ? 30.27 0.17 Right Ulnar (Mrkrs) (Abd Dig Min) ? 30.11 0.17 EMG ?Side Muscle Nerve Root Ins Act Fibs Amp Dur Recrt Comment Right 1stDorInt Ulnar C8-T1 Nml Nml Nml Nml Nml Right Ext Indicis Radial (Post Int) C7-8 Nml Nml Nml Nml Nml Right Ext Digitorum Radial (Post Int) C7-8 Nml Nml Nml Nml Nml Right BrachioRad Radial C5-6 Nml Nml Nml Nml Nml Right PronatorTeres Median C6-7 Nml Nml Nml Nml Nml Right Abd Poll Brev Median C8-T1 Nml Nml Nml Nml Nml Right ABD Dig Min Ulnar C8-T1 Nml Nml Nml Nml Nml Right FlexPolLong Median (Ant Int) C7-8 Nml Nml Nml Nml Nml Right Abd Poll Long Radial (Post Int) C7-8 Nml Nml Nml Nml Nml Left 1stDorInt Ulnar C8-T1 Nml Nml Nml Nml Nml Left Ext Indicis Radial (Post Int) C7-8 Nml Nml Nml Nml Nml Left Ext Digitorum Radial (Post Int) C7-8 Nml Nml Nml Nml Nml Left BrachioRad Radial C5-6 Nml Nml Nml Nml Nml Left PronatorTeres Median C6-7 Nml Nml Nml Nml Nml Left Abd Poll Brev Median C8-T1 Nml Nml Nml Nml Nml Left ABD Dig Min Ulnar C8-T1 Nml Nml Nml Nml Nml Left FlexPolLong Median (Ant Int) C7-8 Nml Nml Nml Nml Nml Left Abd Poll Long Radial (Post Int) C7-8 Nml Nml Nml Nml Nml MTDD
== END 2025-01-22 10:38 | disposition home or self-care (01) ==
LOC: ANHNEURO 10:39
PROVIDERS: PCP Family Medicine; Visit Provider Plastic Surgery
DX: G56.03 Carpal tunnel syndrome, bilateral upper limbs (principal); G56.21 Lesion of ulnar nerve, right upper limb
CPT/HCPCS: 95886; 95911

== ENCOUNTER 2025-05-08 15:00 | Outpatient (CLI) | payer MEDICARE, OTHER, SELFPAY ==
--- NOTE | ~2025-05-08 | MM_ITS ---
EXAMINATION: MM screening nils BI w donna HISTORY: Screening mammogram TECHNIQUE: Craniocaudal and mediolateral oblique 3-D tomosynthesis images were obtained and synthetic 2-D images were generated. CAD analysis was submitted and interpreted. COMPARISON: 04/26/2023 BREAST PARENCHYMAL COMPOSITION:Dense: The breasts are heterogeneously dense, which may obscure small masses. FINDINGS: Possible obscured masses at the upper inner, and lower inner, left breast. No suspicious mass or distortion seen in the right breast. No suspicious mesenteric or calcification. IMPRESSION: Possible left breast masses, as detailed above. Spot compression views and ultrasound are recommended for further evaluation. BI-RADS Category 0: Incomplete: Needs additional imaging evaluation. Reviewed, dictated and finalized at [facility]. IMPRESSION: Possible left breast masses, as detailed above. Spot compression views and ultr asound are recommended for further evaluation. BI-RADS Category 0: Incomplete: Needs additional imaging evaluation.
== END 2025-05-08 15:01 | disposition home or self-care (01) ==
LOC: MICIMG 15:01
PROVIDERS: PCP Family Medicine; Visit Provider Family Medicine
DX: Z12.31 Encounter for screening mammogram for malignant neoplasm of breast (principal)
CPT/HCPCS: 77063; 77067

== ENCOUNTER 2025-06-12 12:44 | Outpatient (CLI) | payer MEDICARE, OTHER, SELFPAY ==
--- NOTE | ~2025-06-12 | MMUS_ITS ---
EXAMINATION: US breast LT limited, MM diagnostic nils LT w donna INDICATION: 65-year old female; BI-RADS 0, callback from screening to evaluate possible obscured mass is in the upper inner and lower inner left breast. COMPARISON: 05/08/2025 TECHNIQUE: Digital breast tomosynthesis ML and spot compression CC and MLO views of Left breast were obtained with computer-aided detection to assist in interpretation of the study. FINDINGS: The breasts are heterogeneously dense, which may obscure small masses. A spiculated mass persists in the inner central left breast which correlates to finding on the screening mammogram. No suspicious mammographic finding persists in the upper inner quadrant on spot compression views. LEFT BREAST ULTRASOUND FINDINGS: Targeted evaluation of the inner central left breast revealed a 1.3 x 3.1 x 1.4 cm heterogeneous hypoechoic mass with internal vascularity at 9:00, 3 cm from the nipple, which correlates to the mammographic finding. Evaluation of the axilla showed a prominent lymph node with thickened nodular cortex that measure up to 5.8 mm thick. IMPRESSION: 1. Highly suspicious LEFT breast mass at 9:00 location that correlates to mammography finding. Biopsy is recommended. RECOMMENDATIONS: Ultrasound-guided core needle biopsy of LEFT breast mass at 9:00 location. Ultrasound guided core needle biopsy of left axillary prominent lymph node with nodular cortex. Given patient's extremely dense breast tissue pattern, consideration should be given to bilateral breast MR to assess extent of disease. BI-RADS 5, HIGHLY SUSPICIOUS FOR MALIGNANCY Reviewed, dictated and finalized at location B. IMPRESSION: 1. Highly suspicious LEFT breast mass at 9:00 location that correlates to mamm ography finding. Biopsy is recommended. RECOMMENDATIONS: Ultrasound-guided core needle biopsy of LEFT breast mass at 9:00 location. Ultrasound guided core needle biopsy of left axillary prominent lymph node with nodular cortex. Given patient's extremely dense breast tissue pattern, consideration should be given to bilateral breast MR to assess extent of disease. BI-RADS 5, HIGHLY SUSPICIOUS FOR MALIGNANCY
== END 2025-06-12 12:45 | disposition home or self-care (01) ==
LOC: ANHFOHIMG 12:45
PROVIDERS: PCP Family Medicine; Visit Provider Family Medicine
DX: R92.8 Other abnormal and inconclusive findings on diagnostic imaging of breast (principal); N63.20 Unspecified lump in the left breast, unspecified quadrant
CPT/HCPCS: 76642; 77061; 77065; G0279

== ENCOUNTER 2025-06-24 07:27 | Outpatient (CLI) | payer MEDICARE, OTHER, SELFPAY ==
--- NOTE | ~2025-06-24 | MMUS_ITS ---
PROCEDURE:US breast biopsy LT w image, MM post biopsy diagnostic LT CLINICAL HISTORY: 65-year-old female with highly suspicious left breast mass, presents for ultrasound-guided core needle biopsy procedure. COMPARISON: 06/12/2025 Following informed consent including risks, benefits, and possible complications, the patient was brought to the ultrasound suite. A time-out procedure was performed. A preliminary ultrasound of the left breast was performed, redemonstrating hypoechoic mass with irregular and ill-defined margins at 9:00, 3 cm from the nipple. The patient was prepped and draped in the usual sterile fashion. 1% lidocaine was instilled into the subcutaneous tissues. 1% lidocaine without epinephrine was injected into the deep tissues just inferior to the lesion. Approximately 15cc lidocaine was administered. A small skin mahad was made. Multiple core samples were obtained with a 14-gauge multi pass biopsy needle. A post biopsy metal marker was placed at the biopsy site. Postprocedural mammogram of the left breast in craniocaudal and mediolateral projections reveal the post biopsy metal marker in good position. The patient tolerated the procedure well and was without immediate postprocedural complications. IMPRESSION: Successful ultrasound guided biopsy of left breast mass at 9:00 location. A post biopsy butterfly [place] Ilya marker was placed at the biopsy site, which is seen on postprocedural mammogram. The patient tolerated the procedure well without immediate postprocedure complications. The patient was given postprocedural instructions and sent home in stable condition. Reviewed, dictated and finalized at location B. IMPRESSION: Successful ultrasound guided biopsy of left breast mass at 9:00 loc ation. A post biopsy butterfly [place] Ilya marker was placed at the biopsy site, which is seen on postprocedural mammogram. The patient tolerated the procedure well without immediate postprocedure compli cations. The patient was given postprocedural instructions and sent home in sta ble condition.
--- OUTSIDE RECORDS SUMMARY | 2025-06-24 07:31 | XMS_ITS | Patient Health Record ---
Author Organization [facility] Address [address] [place] [address] Support Name Relationship Address Phone Velvet Pollard Guarantor Unknown Reason For Referral No Information Plan Of Treatment No Information Insurance Providers Payer Name Payer Address Payer Phone Subscriber Number Group Number Insured Name Patient Relationship to Insured Coverage Start Date Coverage End Date [facility] [address] [address] [place] [address] [id number] Velvet Pollard Self - patient is the insured 7 Medical (General) History Surgical History Surgery Date(Month/Year) Tonsillectomy; 2017-04-17 Laminectomy; 2017-04-17 Tubal ligation; 2017-04-17
--- OUTSIDE RECORDS SUMMARY | 2025-06-24 07:31 | XMS_ITS | Clinical Summary ---
Author Organization [facility] Address [address] [place] [address] Care Team Providers Care Plant Production Worker Name Role Phone Prosper Llanes MD Primary Care Provider [phone] [phone] Allergies Active Allergy Reactions Criticality Noted Date Comments Hydromorphone (Bulk) Vomiting Low 02/18/2025 Levothyroxine Sodium Other (See comments) 02/18 depression Lisinopril Cough Low 02/18/2025 Tetracyclines Medications hydroCHLOROthia zide (HYDRODIURIL) 25 mg tablet Take 25 mg by mouth daily Active meloxicam (MOBIC) 15 mg tablet Take 15 mg by mouth daily Active atorvastatin (LIPITOR) 20 mg tablet Take 1 tablet (20 mg total) by mouth daily 12/18/2024 Active losartan (COZAAR) 50 mg tablet Take 1 tablet (50 mg total) by mouth daily 12/18/2024 Active predniSONE (DELTASONE) 50 mg tablet Take 1 tablet (50 mg) by mouth daily 01/31/2025 Active omega-3 fatty acids-fish oil 300-1,000 mg capsule Take 2 capsules (2 g total) by mouth daily Active multivitamin with iron tablet Take 1 tablet by mouth daily Active Active Problems Problem Noted Date Diagnosed Date Lumbago 06/26/2014 Immunizations Immunization Administration Dates Next Due Influenza, Quadrivalent, Rec ombinant, Egg Free, Preservative Free, Intramuscular 06/05/2019 Surgical History Surgery Date Site/Laterality Comments NECK SURGERY Neck Surgery - (Added by TW Conv) [place] TONSILLECTOMY PRIMARY/SEC ONDARY <AGE 11 Tonsillectomy - [...] Years Used Date Smoking Tobacco: Former Cigarettes 1991 Smokeless Tobacco: Never Tobacco Cessation:Counseling Given: Yes Alcohol Use Standard Drinks/Week Comments Never 0 (1 standard drink = 0.6 oz pur e alcohol) AUDIT-C Answer Date Recorded Q1: How often do you have a drink containing alc ohol? 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 Gender Identity Female 01/19/2024 8:14 PM CDT Sexual Orientation Not on file Obstetrics History Last Filed Vital Signs Vital Sign Reading Time Taken Comments Blood Pressure 130/83 04/13/2020 1:52 PM CDT Pulse 86 04/13/2020 1:52 PM CDT Temperature - - Respiratory Rate - - Oxygen Saturation - - Inhaled Oxygen Concentration - - Weight 90.7 kg (200 lb) 02/18/2025 3:31 PM CDT Height 167.6 cm (5' 6) 02/18/2025 3:31 PM CDT Body Mass Index 32.28 02/18/2025 3:31 PM CDT Plan of Treatment Health Maintenance Due Date Last Done Comments Breast Cancer Screening-Mammogram 1959 Colon Cancer Screening-Colonoscopy 1959 Depression Screening 1959 Fall Risk Assessment 1959 Hepatitis C Screening 1959 Osteoporosis Screening-Bone Density Scan 1959 DTaP/Tdap/Td Vaccine (1 - Tdap) 1970 Hepatitis B Screening 1977 Pneumococcal vaccine 65+ (1 of 1 - PCV) 2009 Zoster Vaccine (1 of 2) 2009 Well Visit 65+ 2024 Influenza Vaccine (#1) 2025 06/05/2019 [facility] Care Teams Plant Production Worker Relationship Specialty Start Date End Date Prosper Llanes MD PCP - General Family Medicine 10/10/19
--- NOTE | 2025-06-24 08:53 | S_PTH ---
PATIENT: Velvet Martin LOC: [facility] U#:[id number] AGE/SX: 65/F ROOM: RE06/24/[address]: Minal Llanes MD : 1960 BED: DIS: 06/24/2025 SPEC #: [id number] RECD: 06/24/25 10:16 STATUS: ROSETTA RODRIGUEZ #: [id number] KAT: 06/24/25 08:[address]: Minal Llanes [facility]PT[facility] Surgical RECD BY: Katheryn Fitzpatrick Tissues: A - Breast Biopsy Procedures: P63 Hematoxylin and Eosin Stain E-Cadherin Gross and Microscopic Level 4 ER-60 TX-60 MIB-60 HER 2-60 CK 5
== END 2025-06-24 07:28 | disposition home or self-care (01) ==
PROVIDERS: PCP Family Medicine; Visit Provider Family Medicine
DX: R92.8 Other abnormal and inconclusive findings on diagnostic imaging of breast (principal)
CPT/HCPCS: 19083; 77065; 88305; 88342; 88360; A4648

== ENCOUNTER 2025-06-27 08:51 | Outpatient (CLI) | payer MEDICARE, OTHER, SELFPAY ==
--- NOTE | ~2025-06-27 | MR_ITS ---
MR breast BI wo/w con 07/07/2025 7:50 CDT INDICATION: Invasive ductal carcinoma left breast. TECHNIQUE: MRI of the breasts perform using standard protocol pre-and post IV contrast with the following sequences: Axial T2 STIR, axial T1, axial vibrant T1 with fat suppression precontrast and multiphasic postcontrast. 18 cc MultiHance administered intravenously. COMPARISON: Comparison to multiple prior studies sequentially, with oldest reviewed study dated 02/05/2016. FINDINGS: Right breast: Mild background enhancement. At the 11:00 position, middle third, 8.7 cm posterior to the nipple, there is an 11 x 8 x 7 mm enhancing mass demonstrating heterogeneous internal enhancement with irregular margins and shape. The lesion demonstrates rapid initial enhancement with subsequent washout kinetics. There is a small area of central hypointensity, possibly representing central necrosis. Findings are suspicious for malignancy. LEFT BREAST: Mild background enhancement. At 8:00 position, anterior third, corresponding to known biopsy-proven malignancy there is an irregular enhancing mass measuring 3 x 2.8 x 1.8 cm. The lesion has spiculated margins and heterogeneous enhancement with rapid washout kinetics. A linear central hypo intense tract is present consistent with previous biopsy site. Findings are consistent with known invasive carcinoma. In the left axilla there is an atypical lymph node measuring 1.7 x 1 x 1.2 cm which demonstrates cortical thickening and loss of fatty hilum suspicious for metastatic involvement. IMPRESSION: 1: Left breast: Known biopsy-proven carcinoma in the lower inner quadrant at 8:00, with spiculated irregular enhancing mass and rapid washout, consistent with malignancy. Left axillary lymph node measures 1.7 cm with a atypical morphology suspicious for metastatic disease. Recommend targeted ultrasound and possible fine needle aspiration or core biopsy. BI-RADS category 5: Highly suspicious abnormality. 2: Right breast: 11 x 8 x 7 mm irregular enhancing mass in the upper outer quadrant (11:00, middle third), with heterogeneous enhancement and washout, suspicious for malignancy. Recommend targeted ultrasound and/or MRI guided biopsy if not already performed. BI-RADS CATEGORY 4-SUSPICIOUS ABNORMALITY Reviewed, dictated and finalized at location O. IMPRESSION: 1: Left breast: Known biopsy-proven carcinoma in the lower inner quadrant at 8 :00, with spiculated irregular enhancing mass and rapid washout, consistent wit h malignancy. Left axillary lymph node measures 1.7 cm with a atypical morpholo gy suspicious for metastatic disease. Recommend targeted ultrasound and possibl e fine needle aspiration or core biopsy. BI-RADS category 5: Highly suspicious abnormality. 2: Right breast: 11 x 8 x 7 mm irregular enhancing mass in the upper outer braulio drant (11:00, middle third), with heterogeneous enhancement and washout, suspic ious for malignancy. Recommend targeted ultrasound and/or MRI guided biopsy if not already performed. BI-RADS CATEGORY 4-SUSPICIOUS ABNORMALITY
== END 2025-06-27 08:52 | disposition home or self-care (01) ==
PROVIDERS: PCP Family Medicine; Visit Provider Student in an Organized Health Care Education/Training Program
DX: R92.8 Other abnormal and inconclusive findings on diagnostic imaging of breast (principal)
CPT/HCPCS: 77049; A9577; C8908

== ENCOUNTER 2025-07-21 14:30 | Outpatient (CLI) | payer MEDICARE, OTHER, SELFPAY | END 2025-07-21 14:31 | disposition home or self-care (01) | LOC: ANHLAB 14:32 | PROVIDERS: PCP Family Medicine; Visit Provider Internal Medicine Hematology & Oncology | DX: C50.112 Malignant neoplasm of central portion of left female breast (principal); Z17.0 Estrogen receptor positive status [ER+] | CPT/HCPCS: 36415 ==

== ENCOUNTER 2025-07-31 07:54 | Outpatient (CLI) | payer MEDICARE, OTHER, SELFPAY ==
--- NOTE | ~2025-07-31 | US_ITS ---
EXAMINATION: US axilla LT, 07/31/2025 8:30 LOGISTIC SPECIALIST HISTORY: R92.8 - Other abnormal and inconclusive findings on diagn... Comparison: None Technique: Philip-scale and color Doppler images were obtained. Findings: Correlating with the palpable area there are lymph nodes identified with normal- appearing hilar and no abnormal flow, the largest lymph node measures 1 x 1 x 1 cm. IMPRESSION: Nonspecific lymph nodes detailed above. Follow-up suggested to assess stability or resolution Reviewed, dictated and finalized at location P. STIC SPECIALIST IMPRESSION: Nonspecific lymph nodes detailed above. Follow-up suggested to asse ss stability or resolution
--- OUTSIDE RECORDS SUMMARY | 2025-07-31 07:59 | XMS_ITS | Patient Health Record ---
Author Organization [facility] Address [address] [place] [address] Support Name Relationship Address Phone Velvet Pollard Guarantor Unknown Reason For Referral No Information Plan Of Treatment No Information Insurance Providers Payer Name Payer Address Payer Phone Subscriber Number Group Number Insured Name Patient Relationship to Insured Coverage Start Date Coverage End Date [facility] [employer] [facility] [address] [address] [place] [address] [id number] Velvet Pollard Self - patient is the insured 7 Medical (General) History Surgical History Surgery Date(Month/Year) Tonsillectomy; 2017-04-17 Laminectomy; 2017-04-17 Tubal ligation; 2017-04-17
--- OUTSIDE RECORDS SUMMARY | 2025-07-31 07:59 | XMS_ITS | Clinical Summary ---
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
--- OUTSIDE RECORDS SUMMARY | 2025-07-31 07:59 | XMS_ITS | Clinical Summary ---
Author Organization [facility] Address [address] [place] [address] Care Team Providers Care Culinary Art Teacher Name Role Phone Unavailable Primary Care Provider Unavailabl e Allergies Active Allergy Reactions Criticality Noted Date Comments Hydromorphone Nausea and Vomiting Low 07/21/2025 Levothyroxine Other (See Comments) 07/21/2025 Depression/Hot flashes Lisinopril Cough Low 07/21/2025 Tetracycline Swelling Low 07/21/2025 Medications atorvastatin (LIPITOR) 20 mg tablet Take 20 mg by mouth daily. 03/11/2025 Active hydroCHLOROthiaz dina 25 mg tablet Take 25 mg by mouth daily. 07/18/2025 Active predniSONE (DELTASONE) 10 mg tablet Take 50 mg by mouth daily. 02/11/2025 Active Active Problems No known active problems Encounters Date Type Department Care Team Description 07/22/2025 External Device Data STL ABSTRACTION Provider, Abstract 07/22/2025 External Device Data STL ABSTRACTION Provider, Abstract 07/22/2025 External Device Data STL ABSTRACTION Provider, Abstract 07/21/2025 1:30 PM CHART COMPUTER Office Visit [facility] Oncology and Hematology [facility] [address] [place] [address] Mesfin Diane MD Malignant neoplasm of central portion of left breast in female, estrogen receptor positive (CMS/HCC) (Primary Dx) 07/21/2025 Orders Only [facility] Oncology and Hematology [facility] [address] [place] [id number] Mesfin Diane MD Malignant neoplasm of central portion of left breast in female, estrogen receptor positive (CMS/HCC) (Primary Dx) from Last 3 Months Family History Medical History Relation Name Comments No Known Problems Brother 1 Tonsil cancer Brother 2 No Known Problems Brother 3 No Known Problems Child 1 No Known Problems Child 2 No Known Problems Child 3 No Known Problems Father No Known Problems Mother Relation Name Status Comments Brother 1 Brother 2 Alive Brother 3 Alive Child 1 Alive Child 2 Alive Child 3 Father Mother Social History Tobacco Use Types Packs/Day Years Used Date Smoking Tobacco: Former Cigarettes 1 10 1 - 06/18/1992 Smokeless Tobacco: Never Tobacco Cessation:Counseling Given: Not Answered Alcohol Use Standard Drinks/Week Comments Never 0 (1 standard drink = 0.6 oz pur e alcohol) Comments Unknown Sex and Gender Information Value Date Recorded Sex Assigned at Not on file Legal Sex Female 9:59 AM CDT Gender Identity Not on file Sexual Orientation Not on file Last Filed Vital Signs Vital Sign Reading Time Taken Comments Blood Pressure 132/90 07/21/2025 1:31 PM CHART COMPUTER Pulse 92 07/21/2025 1:28 PM CHART COMPUTER Temperature 36.9 C (98.4 F) 07/21/2025 1:28 PM CHART COMPUTER Respiratory Rate 16 07/21/2025 1:28 PM CHART COMPUTER Oxygen Saturation 94% 07/21/2025 1:28 PM CHART COMPUTER Inhaled Oxygen Concentration - - Weight 91.4 kg (201 lb 6.4 oz) 07/21/2025 1:28 P M CHART COMPUTER Height 167.6 cm (5' 6) 07/21/2025 1:28 PM CHART COMPUTER Body Mass Index 32.51 07/21/2025 1:28 PM CHART COMPUTER Plan of Treatment Upcoming Encounters Date Type Department Care Team (Late st Contact Info) Description 08/04/2025 4:30 PM CHART COMPUTER Telephone Check Up [facility] Oncology and Hematology - [place] [address] [place] [address] Reanna Wood MD [address] [place] [address] Health Maintenance Due Date Last Done Comments Pre-Diabetes and Diabetes Screening 1960 DTAP/TDAP/TD VACCINES (1 - Tdap) 1978 Traditional Medicare (ACO) Annual Wellness Visit 03/04 BREAST CANCER SCREENING 1999 COLORECTAL SCREENING 2004 Colorectal Cancer Screening 2004 FIT-DNA Q 3 years 2004 FIT/FOBT Q 1 year 2004 Flex Sig/CT Colonography Q 5 years 2004 PNEUMOCOCCAL VACCINE 50+ YEARS (1 of 1 - PCV) 03/04/20 09 ZOSTER VACCINE (1 of 2) 2009 OSTEOPOROSIS SCREENING 2024 INFLUENZA VACCINE (#1) 2025 RSV VACCINE (60+ or ) (1 - 1-dose 75+ series) 2034 Procedures Procedure Name Priority Date/Time Associated Diagnosis Comments [facility] XF Routine 07/28/2025 3:59 PM CHART COMPUTER Malignant neoplasm of central portion of left breast in female, estrogen receptor positive (CMS/HCC) [facility] NORMAL BLOOD Routine 07/21/2025 2:52 PM CHART COMPUTER Malignant neoplasm of central portion of left breast in female, estrogen receptor positive (CMS/HCC) from Last 3 Months Results * [facility] XF (07/28/2025 3:59 PM CHART COMPUTER) Reason for Study To identify mutations relevant to patient's cancer. 07/28/2025 3:59 PM CHART COMPUTER [facility] Genetic Diseases Assessed Cancer 07/28/2025 3:59 PM CHART COMPUTER [facility] Description of Ranges of DNA Sequences Examined 105 gene liquid biopsy 07/28/2025 3:59 PM CHART COMPUTER [facility] Overall Interpretation inconclusive 07/28/2025 3:59 PM CHART COMPUTER [facility] [email or web address] 07/28/2025 3:59 PM CHART COMPUTER [facility] Comment:[facility] link Low Coverage Regions TERT 07/28/2025 3:59 PM CHART COMPUTER [facility] Blood Tumor Mutational [place] Note bTMB cannot be calculated due to insufficient circulating tumor DNA. 07/28/2025 3:59 PM CHART COMPUTER [facility] Genomic Variant Note No reportable pathogenic variants were found. 07/28/2025 3:59 PM CHART COMPUTER [facility] Microsatellite Instability Note MSI-High not detected 07/28/2025 3:59 PM CHART COMPUTER [facility] Treatment Implications Note No reportable treatment options found. 07/28/2025 3:59 PM CHART COMPUTER [facility] Blood specimen (specimen) 07/22/2025 10:01 PM CHART COMPUTER Narrative This result has genomic variants that were not included in this document. us Mesfin Diane MD MOLECULAR ORDERABLES Final Resu lt Performing Organization Address City/[facility]/ZIP Co de Phone Number [facility] [address], [address] [place] [address], [facility] [address], [address] [place] [id number] * [facility] XT NORMAL BLOOD (07/21/2025 2:52 PM CHART COMPUTER) [facility] 07/21/2025 11:01 PM CHART COMPUTER [facility] Comment:See NGS Report for R esults. Blood specimen (specimen) 07/21/2025 2:52 PM CHART COMPUTER 07/21/2025 2:53 PM CHART COMPUTER us Mesfin Diane MD MOLECULAR ORDERABLES Final Resu lt Performing Organization Address City/[facility]/ZIP Co de Phone Number [facility] [address], [address] [place] [address], [place] [phone] [facility] [address], [address] [place] [phone] from Last 3 Months Insurance MEDICARE PART A AND B [facility] [place] [employer] [facility] Address: [facility] [address] [place] [address]
== END 2025-07-31 07:55 | disposition home or self-care (01) ==
LOC: ANHFOHIMG 07:55
PROVIDERS: PCP Family Medicine; Visit Provider Family Medicine
DX: R92.8 Other abnormal and inconclusive findings on diagnostic imaging of breast (principal); R59.0 Localized enlarged lymph nodes
CPT/HCPCS: 76882

== ENCOUNTER 2025-08-06 07:05 | Outpatient (CLI) | payer MEDICARE, OTHER, SELFPAY ==
--- NOTE | ~2025-08-06 | US_ITS ---
EXAMINATION: US breast RT limited INDICATION: 65-year old female; with recently diagnosed left breast cancer, presents for evaluation of area of abnormality in the right breast seen on breast MRI completed on 06/27/2025. COMPARISON: Breast MR 06/27/2025. TECHNIQUE: Targeted sonographic evaluation of the area of concern completed. FINDINGS: At 11:00, 5 cm from the nipple there is an hypoechoic mass the measure 0.66 x 0.73 x 0.57 cm, with irregular margins which correlates to the MRI finding. IMPRESSION: 1. Highly suspicious RIGHT breast 0.7 cm mass at 11:00 location that correlates to MRI finding. Recommend biopsy. RECOMMENDATIONS: Ultrasound-guided core needle biopsy of right breast mass at 11:00, 5 cm from the nipple. BI-RADS 5, HIGHLY SUSPICIOUS FOR MALIGNANCY Reviewed, dictated and finalized at location C. SUPPLIER IMPRESSION: 1. Highly suspicious RIGHT breast 0.7 cm mass at 11:00 location that correlate s to MRI finding. Recommend biopsy. RECOMMENDATIONS: Ultrasound-guided core needle biopsy of right breast mass at 11:00, 5 cm from t he nipple. BI-RADS 5, HIGHLY SUSPICIOUS FOR MALIGNANCY
--- NOTE | ~2025-08-06 | MMUS_ITS ---
PROCEDURE: US breast biopsy RT w image, MM post biopsy diagnostic RT CLINICAL HISTORY: 65-year-old female with highly suspicious right breast mass who presents for ultrasound-guided core needle biopsy procedure. COMPARISON: 08/06/2025 and MRI 06/27/2025. Following informed consent including risks, benefits, and possible complications, the patient was brought to the ultrasound suite. A time-out procedure was performed. A preliminary ultrasound of the right breast was performed, redemonstrating an irregular shaped hypoechoic mass at 11:00, 5 cm FN. The patient was prepped and draped in the usual sterile fashion. 1% lidocaine was instilled into the subcutaneous tissues. 1% lidocaine without epinephrine was injected into the deep tissues just inferior to the lesion. Approximately 15cc lidocaine was administered. A small skin mahad was made. Multiple core samples were obtained with a 14-gauge multi pass biopsy needle. A post biopsy Lititz Ilya coil marker was placed at the biopsy site. Postprocedural mammogram of the right breast in craniocaudal and mediolateral projections reveal the post biopsy metal marker in good position. The patient tolerated the procedure well and was without immediate postprocedural complications. IMPRESSION: Successful ultrasound guided biopsy of right breast mass. A post biopsy metal marker was placed at the biopsy site, which is seen on postprocedural mammogram. The patient tolerated the procedure well without immediate postprocedure complications. The patient was given postprocedural instructions and sent home in stable condition. Pathology report is pending. Reviewed, dictated and finalized at location B. SETTER IMPRESSION: Successful ultrasound guided biopsy of right breast mass. A post bi opsy metal marker was placed at the biopsy site, which is seen on postprocedura l mammogram. The patient tolerated the procedure well without immediate postprocedure compli cations. The patient was given postprocedural instructions and sent home in sta ble condition. Pathology report is pending.
--- OUTSIDE RECORDS SUMMARY | 2025-08-06 07:10 | XMS_ITS | Encounter Summary ---
Author Organization [facility] Address [address] [place] [address] Care Team Providers Care Legal Word Processor Name Role Phone Unavailable Primary Care Provider Unavailabl e Encounter Details Date Type Department Care Team (Late st Contact Info) Description 08/05/2025 External Device Data [facility] ABSTRACTION Provider, Abstract NO ADDRESS ON FILE Social History Tobacco Use Types Packs/Day Years Used Date Smoking Tobacco: Former Cigarettes 1 10 1 - 06/18/1992 Smokeless Tobacco: Never Alcohol Use Standard Drinks/Week Comments Never 0 (1 standard drink = 0.6 oz pur e alcohol) Comments Unknown Sex and Gender Information Value Date Recorded Sex Assigned at Not on file Legal Sex Female 9:59 AM CDT Gender Identity Not on file Sexual Orientation Not on file documented as of this encounter Plan of Treatment Upcoming Encounters Date Type Department Care Team (Late st Contact Info) Description 08/20/2025 4:30 PM COMPONENT PREP OPERATOR Telephone Check Up [facility] Oncology and Hematology - [place] [address] [place] [address] [facility] [address] [place] [address] Mesfin Diane MD [address] [place] [address] documented as of this encounter Visit Diagnoses Not on filedocumented in this encounter
--- OUTSIDE RECORDS SUMMARY | 2025-08-06 07:10 | XMS_ITS | Clinical Summary ---
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
--- NOTE | 2025-08-06 09:50 | S_PTH ---
PATIENT: Velvet Martin LOC: [facility] U#:[id number] AGE/SX: 65/F ROOM: RE08/06/[address]: Kanika Mohan MD : 1960 BED: DIS: 08/06/2025 SPEC #: [id number] RECD: 08/06/25 11:37 STATUS: ROSETTA RODRIGUEZ #: [id number] KAT: 08/06/25 09:[address]: Kanika Mohan DEPT: [facility] Surgical RECD BY: Katheryn Fitzpatrick ENTERED: 08/06/25 11:37 SP TYPE: Surgical OTHR DR: Minal Llanes MD Tissues: A - Breast Biopsy Procedures: Hematoxylin and Eosin Stain Gross and Microscopic Level 4 ER-60 NY-60 MIB-60 HER 2-60
== END 2025-08-06 07:06 | disposition home or self-care (01) ==
PROVIDERS: PCP Family Medicine; Visit Provider Surgery
DX: R92.8 Other abnormal and inconclusive findings on diagnostic imaging of breast (principal); C50.411 Malignant neoplasm of upper-outer quadrant of right female breast
CPT/HCPCS: 19083; 76642; 77065; 88305; 88360; A4648